=== PATIENT | female | born 1955 | race Caucasian/White ===

== ENCOUNTER 2019-06-27 05:57 | Day surgery (SDC) | payer BC ==
[2019-06-24 14:39] VITALS: BMI 25.7
[2019-06-27] MEDS ORDERED: SUCCINYLCHOLINE CHLORIDE 200 MG/10 ML SYRINGE ONE (07:19)
[2019-06-27] MEDS ORDERED: PROPOFOL 20 ML ONE ×2 (07:19)
[2019-06-27] MEDS ORDERED: MIDAZOLAM HCL 2 MG/2 ML SINGLE DOSE VIAL ONE (07:19)
[2019-06-27] MEDS ORDERED: BUPIVACAINE HCL/PF 2.5 MG/ML - 30 ML VIAL IJ ONE (07:26)
[2019-06-27] MEDS ORDERED: EPHEDRINE SULFATE/0.9% NACL/PF 50 MG/10 ML SYRINGE NR ONE (07:49)
[2019-06-27] MEDS ORDERED: ceFAZolin SODIUM 1 GM VIAL ONE (08:32)
[2019-06-27] MEDS ORDERED: LIDOCAINE HCL 2% JELLY (5 ML/TUBE) ONE (08:32)
[2019-06-27] MEDS ORDERED: DEXAMETHASONE SOD PHOSPHATE 4 MG/1 ML VIAL ONE (08:32)
[2019-06-27] MEDS ORDERED: DESFLURANE GAS 240 ML BOTTLE IH ONE (08:32)
[2019-06-27] MEDS ORDERED: SEVOFLURANE 250 ML BTL ONE (08:32)
[2019-06-27] MEDS ORDERED: KETOROLAC TROMETHAMINE 30 MG/1 ML VIAL ONE (08:32)
[2019-06-27] MEDS ORDERED: LIDOCAINE HCL/PF 2% SDV 5ML VIAL ONE (08:32)
[2019-06-27] MEDS ORDERED: ONDANSETRON 4 MG/2 ML VIAL ONE (08:32)
[2019-06-27] MEDS ORDERED: GUM MASTIC/STORAX/MSAL/ALCOHOL 1 DRP DROPSBTL MC ONE (08:34)
[2019-06-27] MEDS ORDERED: BUPIVACAINE HCL/PF 0.25% (2.5MG/ML) 10 ML VIAL IJ ONE (08:45)
[2019-06-27] MEDS ORDERED: ONDANSETRON 4 MG/2 ML VIAL IVPUSH PRN (09:00)
[2019-06-27] MEDS ORDERED: oxyCODONE HCL 5 MG TABLET PO PRN ×2 (09:00)
[2019-06-27] MEDS ORDERED: PROMETHAZINE HCL 25 MG/1 ML VIAL IVPUSH PRN (09:00)
--- NOTE | 2019-06-27 10:41 | OP ---
Operative Note - Note: Operative Date: 06/27/19 Pre-Operative Diagnosis: bucket tear of medial meniscus Operation: right arthroscopy with partial medial and lateral menisectomy, debridement Surgeon: Fernie Reynolds [employer] Dispatcher: Mary Ellen Rubin Anesthesiologist/FACILITY OPERATIONS MANAGER: Fernie Pandey Estimated Blood Loss (mls): 10 Fluid Volume Replaced (mls): 900 Operative Report Dictated: Yes
--- NOTE | 2019-06-27 10:43 | SURG ---
Surgery Rough Rounder Machine Note Rough Rounder Machine: Mary Ellen Rubin PA-C Date of Service: 06/27/19 Diagnosis: bucket tear of medial meniscus Procedure: right arthroscopy with partial medial and lateral menisectomy, debridement I was present for the entirety of the operative procedure. For further detail, please refer to operative report. Visit type - Case Type Case Type: Scheduled - Emergency Emergency Visit: No - New patient This patient is new to me today: Yes Date on this admission: 06/27/19
--- NOTE | 2019-06-27 10:50 | OP ---
DATE OF OPERATION: 06/27/2019 ATTENDING SURGEON: Fernie Reynolds MD REVERBERATORY SKIMMER: Mary Ellen physician employee relations assistant PREOPERATIVE DIAGNOSIS: Right knee medial and lateral meniscal tears and synovitis. POSTOPERATIVE DIAGNOSIS: Right knee medial and lateral meniscal tears and synovitis. PROCEDURE: Right knee arthroscopy with partial medial, partial lateral meniscectomies, and multicompartment synovectomy. ANESTHESIA: General. ESTIMATED BLOOD LOSS: Minimal. COMPLICATIONS: None. DISPOSITION: Stable to recovery room following procedure. SPECIMEN: Sent to Pathology. INDICATIONS: This is a 64-year-old woman with rheumatoid arthritis who has right knee pain. She has minimal arthrosis in her knee degenerative, and she had MRI findings consistent with medial and lateral meniscal tears. She has diffuse synovitic process including posterior extra-articular synovitis. She has failed conservative management including medications, physical therapy, and injection and wishes to proceed with arthroscopic treatment. A thorough discussion of risks and benefits was had with patient regarding this treatment including infection, stiffness, recurrence of pain, incomplete resolution of symptoms, progression of tearing of arthritis, progression of degenerative arthritis. DETAILS OF PROCEDURE: Patient identified in the preoperative area. She was taken to the operating room, placed supine on the operating room table. She received 1 g of Ancef IV. The right knee and lower extremity were prepped and draped in standard sterile fashion after general anesthesia was given. Nonsterile tourniquet on the right thigh was not inflated during the case. The diagnostic arthroscopy was performed with a standard anterolateral, anteromedial portals. There was diffuse synovitis throughout the knee in all compartments including femoral, medial and lateral gutters, superior patellar pouch, anterior medial and lateral compartments as well as posterior compartment viewed from the anterolateral portal. Extensive synovectomy was performed with the shaver and ArthroCare used to coagulate bleeding points. The posterior compartment synovectomy was performed through a posterior medial portal, which was established outside and using a spinal needle. There were some [id number] grade 3 changes arthritic most notably in the medial compartment, to a lesser extent in the lateral compartment, and least in the patellofemoral compartment. There was degenerative tearing of the medial meniscus including a significant normalize cleavage compartment of the posterior horn of the medial meniscus. A partial medial meniscectomy was performed back to a stable rim using basket forceps automated shaver. Approximately 30%-40% of the meniscus was resected. Laterally, there was degenerative fraying throughout the meniscus, and a partial meniscectomy was performed with the shaver resecting approximately 10%-20% of the meniscus laterally. There was synovitis also adjacent to the cruciate ligaments, which were also debrided with the shaver and coagulated with ArthroCare for bleeding points. Arthroscopic fluid was instilled and suctioned with the drain multiple times. The portals were closed with 4-0 Monocryl suture and Steri-Strips and injected with Marcaine. A sterile dressing was applied. The patient was awoken from anesthesia without complication, taken to the recovery room in stable condition. FERNIE REYNOLDS M.D. [id number]
[2019-06-27] MEDS ORDERED: PROMETHAZINE HCL 25 MG/1 ML VIAL ONE (11:02)
[2019-06-27 12:10] VITALS: TEMP 98.2
[2019-06-27 12:50] VITALS: BP 122/64; PULSE 64
--- NOTE | 2019-07-01 11:01 | PATH ---
Surgical Pathology Report Patient Name: JENNIFER ARRIAGA Med. Rec. #: [id number] /Age/Gender: 1955 (Age: 64) / F Account: [id number] Location: [facility] Taken: 06/27/2019 Received: 06/27/2019 Reported: 07/01/2019 Physicians: Fernie Reynolds M.D. Specimen(s) Received SHAVINGS RIGHT KNEE Clinical History Acute bucket tear of medial meniscus of right knee Final Diagnosis KNEE, RIGHT, ARTHROSCOPIC SHAVINGS: FIBROSYNOVIAL TISSUE SHOWING MARKED LYMPHOPLASMACYTIC INFILTRATE/INFLAMMATION, MODERATE ACUTE INFLAMMATION, FIBRINO-INFLAMMATORY EXUDATE AND REACTIVE CHANGES. (SEE NOTE) FIBROCOLLAGENOUS TISSUE, SCANT CARTILAGE AND BONE. Note: Findings of dense lymphoplasmacytic infiltrate and reactive hyperplasia involving fibrosynovial tissue are compatible with known history of rheumatoid arthritis. Electronically Signed Mago Arroyo M.D. Gross Description Received in formalin, labeled "right knee shavings," is a 4.5 x 4.0 x 0.4 cm. aggregate of hardy-yellow soft tissue fragments. A branch sales and service representative portion is submitted in one cassette. DL/06/27/2019 saudi/06/27/2019
== END 2019-06-27 12:52 | disposition home or self-care (01) ==
LOC: FASU 05:57
PROVIDERS: ATTEND Orthopaedic Surgery
PROC: 0SBC4ZZ Excision of Right Knee Joint, Percutaneous Endoscopic Approach (ICD-10-PCS; 2019-06-27)
PROC: 0SBC4ZZ Excision of Right Knee Joint, Percutaneous Endoscopic Approach (ICD-10-PCS; 2019-06-27)
PROC: 0SBC4ZZ Excision of Right Knee Joint, Percutaneous Endoscopic Approach (ICD-10-PCS; principal; 2019-06-27 07:51)
DX: S83.241A Other tear of medial meniscus, current injury, right knee, initial encounter (principal); S83.281A Other tear of lateral meniscus, current injury, right knee, initial encounter; M65.861 Other synovitis and tenosynovitis, right lower leg
CPT/HCPCS: 88304-TC; 94760